=== PATIENT | female | born 1945 | race Two or more races ===

== ENCOUNTER 2022-05-17 16:02 | Outpatient (CLI) | payer OTHER | END 2022-05-17 16:07 | disposition home or self-care (01) | LOC: RAD 16:02 | PROVIDERS: ATTEND Orthopaedic Surgery | DX: M21.161 Varus deformity, not elsewhere classified, right knee (principal); M21.162 Varus deformity, not elsewhere classified, left knee ==

== ENCOUNTER 2022-05-18 10:20 | Outpatient (CLI) | payer OTHER | END 2022-05-18 10:22 | disposition home or self-care (01) | LOC: LAB 10:20 | PROVIDERS: ATTEND Orthopaedic Surgery | DX: E55.9 Vitamin D deficiency, unspecified (principal); M85.9 Disorder of bone density and structure, unspecified; E56.1 Deficiency of vitamin K; E21.3 Hyperparathyroidism, unspecified; E88.9 Metabolic disorder, unspecified; M81.8 Other osteoporosis without current pathological fracture ==

== ENCOUNTER 2022-08-30 11:16 | Outpatient (CLI) | payer OTHER | END 2022-08-30 16:51 | disposition home or self-care (01) | LOC: MRI 11:16 | PROVIDERS: ATTEND Orthopaedic Surgery | DX: M17.11 Unilateral primary osteoarthritis, right knee (principal); M23.91 Unspecified internal derangement of right knee | CPT/HCPCS: 73721 ==

== ENCOUNTER 2022-10-04 14:24 | Outpatient (CLI) | payer OTHER | END 2022-10-04 14:30 | disposition home or self-care (01) | LOC: RAD 14:24 | PROVIDERS: ATTEND General Practice | DX: S93.402A Sprain of unspecified ligament of left ankle, initial encounter (principal) ==

== ENCOUNTER 2022-10-14 13:52 | Outpatient (CLI) | payer OTHER | END 2022-10-14 13:58 | disposition home or self-care (01) | LOC: RAD 13:52 | PROVIDERS: ATTEND Orthopaedic Surgery | DX: S93.491D Sprain of other ligament of right ankle, subsequent encounter (principal) ==

== ENCOUNTER 2022-11-18 13:00 | Outpatient (CLI) | payer OTHER | END 2022-11-18 13:08 | disposition home or self-care (01) | LOC: RAD 13:00 | PROVIDERS: ATTEND Orthopaedic Surgery | DX: S52.531A Colles' fracture of right radius, initial encounter for closed fracture (principal) ==

== ENCOUNTER 2022-12-23 14:30 | Outpatient (CLI) | payer OTHER | END 2022-12-23 14:37 | disposition home or self-care (01) | LOC: RAD 14:30 | PROVIDERS: ATTEND Orthopaedic Surgery | DX: S52.531D Colles' fracture of right radius, subsequent encounter for closed fracture with routine healing (principal); M25.531 Pain in right wrist ==

== ENCOUNTER → 2022-12-29 | Outpatient (CLI) | payer OTHER | END | disposition home or self-care (01) | LOC: TOM 14:11 | PROVIDERS: ATTEND Orthopaedic Surgery | DX: S52.5 Fracture of lower end of radius (principal); M25.531 Pain in right wrist ==

== ENCOUNTER 2023-03-30 12:49 | Outpatient (CLI) | payer OTHER | END 2023-03-30 12:56 | disposition home or self-care (01) | LOC: RAD 12:49 | PROVIDERS: ATTEND Orthopaedic Surgery | DX: M25.531 Pain in right wrist (principal) ==

== ENCOUNTER 2023-03-30 16:09 | Outpatient (CLI) | payer OTHER | END 2023-03-30 16:14 | disposition home or self-care (01) | LOC: RAD 16:09 | PROVIDERS: ATTEND Orthopaedic Surgery | DX: M25.511 Pain in right shoulder (principal) ==

== ENCOUNTER 2023-04-28 10:45 | Outpatient (CLI) | payer OTHER | END 2023-04-28 10:54 | disposition home or self-care (01) | LOC: TOM 10:45 → RAD 10:45 → TOM 10:54 | PROVIDERS: ATTEND Orthopaedic Surgery | DX: S52.531D Colles' fracture of right radius, subsequent encounter for closed fracture with routine healing (principal); M25.531 Pain in right wrist ==

== ENCOUNTER 2023-05-11 08:25 | Outpatient (CLI) | payer OTHER ==
[2023-05-11 09:40] LABS: HEMOGLOBIN 12.5 g/dL (12.0-15.00); MEAN CELL VOLUME 87.4 fL (80.00-100.00); MEAN CORPUSCULAR HEMOGLOBIN 30.2 pg (27.00-32.0); MEAN CORPUSCULAR HGB CONC 34.6 g/dl (32.0-36.0); PLATELET COUNT 224 K/uL (150-450); RED BLOOD COUNT 4.12 M/uL (4.00-6.00); RED CELL DISTRIBUTION WIDTH 13.9 % (11.5-14.5)
[2023-05-11 09:50] LABS: PH,URINE 5.5 (5.0-8.0); URINE APPEARANCE Clear; URINE BILIRRUBIN Negative (NEGATIVE); URINE BLOOD Negative; URINE COLOR Yellow; URINE GLUCOSE Negative (NEGATIVE); URINE LEUKOCYTE Negative; URINE NITRATE Negative; URINE PROTEIN Negative (NEGATIVE); URINE UROBILINOGEN 0.2 E.U./dl
[2023-05-11 09:51] LABS: URINE EPITHELIAL CELLS 1.5 uL (0.0-38.8); URINE WBC 4.4 uL (0.0-23.2)
[2023-05-11 10:03] LABS: COL EPI 133 SECONDS (82-175)
[2023-05-11 10:06] LABS: URINE BACTERIA 3.7 uL (0.0-1933); URINE RBC 0.5 uL (0.0-20.8)
[2023-05-11 10:09] LABS: INR 1.03; PARTIAL THROMBOPLASTIN TIME 29.3 SECONDS (22.0-34.0); PROTHROMBIN TIME 10.8 SECONDS (9.0-11.5)
[2023-05-11 10:17] LABS: ALBUMIN 3.8 gm/dL (3.4-5.0); BILIRUBIN TOTAL 0.78 mg/dL (0.3-1.2); CREATININE SERUM 0.9 mg/dL (0.55-1.02); GFR 60.71; GLOBULINA 3.5 G/DL (2.4-3.5); POTASSIUM 4.39 mEq/L (3.5-5.1); TOTAL PROTEIN 7.3 gm/dL (6.4-8.2)
== END 2023-05-11 13:49 | disposition home or self-care (01) ==
LOC: LAB 08:25
PROVIDERS: ATTEND Orthopaedic Surgery
DX: D64.9 Anemia, unspecified (principal); D68.8 Other specified coagulation defects; N39.0 Urinary tract infection, site not specified; E88.89 Other specified metabolic disorders; I10 Essential (primary) hypertension; Z76.89 Persons encountering health services in other specified circumstances; M25.531 Pain in right wrist; M25.532 Pain in left wrist

== ENCOUNTER 2023-05-23 13:58 | Emergency (ER) | payer OTHER ==
[~2023-05-23] VITALS: Ht 152.4 cm; Wt 50.8 kg
[2023-05-23] MEDS ORDERED: METFORMIN HCL500 M3 (14:23)
[2023-05-23] MEDS ORDERED: COZAAR100 MG (14:23)
[2023-05-23] MEDS ORDERED: ONDANSETRON HCL 2 MG/ML VIAL IM ONE (16:30)
[2023-05-23 16:42] LABS: HEMATOCRIT 31.8 % (36.0-45.00); HEMOGLOBIN 10.9 g/dL (12.0-15.00); MEAN CELL VOLUME 86.2 fL (80.00-100.00); MEAN CORPUSCULAR HEMOGLOBIN 29.5 pg (27.00-32.0); MEAN CORPUSCULAR HGB CONC 34.2 g/dl (32.0-36.0); PLATELET COUNT 241 K/uL (150-450); RED BLOOD COUNT 3.69 M/uL (4.00-6.00); RED CELL DISTRIBUTION WIDTH 13.8 % (11.5-14.5)
[2023-05-23 17:01] LABS: ALBUMIN 3.7 gm/dL (3.4-5.0); BILIRUBIN TOTAL 0.75 mg/dL (0.3-1.2); CALCIUM 9.5 mg/dL (8.5-10.1); CREATININE SERUM 0.86 mg/dL (0.55-1.02); GFR 63.98; GLOBULINA 4.2 G/DL (2.4-3.5); POTASSIUM 4.59 mEq/L (3.5-5.1); TOTAL PROTEIN 7.9 gm/dL (6.4-8.2)
== END 2023-05-23 18:10 | disposition home or self-care (01) ==
LOC: ER 13:58
PROVIDERS: General Practice
DX: R11.2 Nausea with vomiting, unspecified (principal); Z91.041 Radiographic dye allergy status; I10 Essential (primary) hypertension; E11.9 Type 2 diabetes mellitus without complications; Z79.84 Long term (current) use of oral hypoglycemic drugs
CPT/HCPCS: 36415; 73110; 96372; 99283; J2405

== ENCOUNTER 2023-06-23 14:22 | Outpatient (CLI) | payer OTHER ==
[~2023-06-23 14:22] MED LIST: COZAAR100 MG; METFORMIN HCL500 M3
== END 2023-06-23 14:30 | disposition home or self-care (01) ==
LOC: RAD 14:22
PROVIDERS: ATTEND Orthopaedic Surgery
DX: S52.5 Fracture of lower end of radius (principal); M25.531 Pain in right wrist; Z91.041 Radiographic dye allergy status

== ENCOUNTER → 2023-07-21 | Outpatient (CLI) | payer OTHER | END | disposition home or self-care (01) | LOC: RAD 15:24 | PROVIDERS: ATTEND Orthopaedic Surgery | DX: S52.5 Fracture of lower end of radius (principal); M25.531 Pain in right wrist ==

== ENCOUNTER 2024-12-07 15:27 | Outpatient (CLI) | payer OTHER | END 2024-12-07 15:36 | disposition home or self-care (01) | LOC: RAD 15:27 | PROVIDERS: ATTEND Pediatrics | DX: S72.91XS Unspecified fracture of right femur, sequela (principal) ==